=== PATIENT | female | born 1990 | race Caucasian/White ===

== ENCOUNTER → 2020-08-23 11:10 | Outpatient (BNVA) | payer MEDICAID, SELFPAY | PROVIDERS: Visit Provider Advanced Practice Midwife | DX: Z76.89 Persons encountering health services in other specified circumstances (principal) ==

== ENCOUNTER 2020-09-06 12:45 | Outpatient (REF) | payer MEDICAID, SELFPAY ==
--- NOTE | 2020-09-06 12:50 | US_ITS ---
EXAMINATION: US OBSTETRICAL CLINICAL INFORMATION: 30-year-old at 19.5 weeks of gestation Suspected anomaly COMPARISON: 07/19/2020 TECHNIQUE: Real-time transabdominal ultrasound was performed using C1-5 megahertz transducer. FINDINGS: A single, active, fetus is seen in breech presentation. The placenta is anterior without previa, and the amniotic fluid volume is wnl. MEASUREMENTS: 1. Biparietal Diameter: 4.4 cm; 19.2 wks 2. Occipital Frontal Diameter: 5.8 cm 3. Head Circumference: 16.5 cm; 19.2 wks 4. Abdominal Circumference: 15.0 cm; 20.2 wks 5. Femur Length: 3.0 cm; 19.3 wks 6. Humerus Length: 2.8 cm; 19.2 wks 7. Tibia Length: 2.9 cm; 20.3 wks 8. Ulna Length: 2.8 cm; 20.2 wks 9. Lateral ventricle: 0.58 cm 10. Cerebellum: 1.97 cm; 20.1 wks 11. Cisterna Magna: 0.46 cm 12. Nuchal Fold: 2.7 mm 13. Heart Rate: 139 beats per minute Rt ovary: Unable to visualize Lt ovary: normal Cervical length 3.8 cm on T/A. GESTATIONAL AGE: 1. Established GA: 19.5 wks 2. GA from [facility]: 19.4 wks ESTIMATED DATE OF DELIVERY: 1. Established ANDREW: 01/26/2021 2. ANDREW from [facility]: 01/27/2021 ANATOMY: The visualized anatomy includes but not limited to: 1. Cranium: Normal 2. Intracranial anatomy: cavum septum pellucidi, lateral ventricles, choroid plexus, cerebellum, posterior fossa, third and fourth ventricles. 3. face: orbits, lip/palate, profile, nasal bone 4. Heart: four-chamber view of the heart, ventricular septum, foramen ovale, pulmonary vein, left and right outflow tracts, three-vessel view, 3 vessel trachea view, aortic and ductal arches, situs.. 5. Diaphragm: Normal 6. Abdominal wall: Normal 7. Cord Insertion: Normal 8. Spine: Cervical, thoracic, lumbar, sacral. 9. Stomach: Normal size and shape 10. Right Kidney: Normal 11. Left Kidney: Normal 12. 3 vessel cord: Normal 13. Upper extremity: Open hands, fifth digit. 14. Lower extremity: Tibia, fibula, bilateral feet. 15. Bladder: Normal 16. Genitalia: Male, patient aware US/US OB /maternal detail IMPRESSION: 1. Single, living, intrauterine with appropriate biometry. 2. Normal survey DISCUSSION: I reviewed today's ultrasound findings. We discussed the limitations of ultrasound in diagnosing aneuploidy and other congenital abnormalities. I reviewed the differences between screening test and diagnostic test. Amniocentesis was discussed and declined. She was informed that the baseline incidence of congenital abnormalities is approximately 3-5%. Not all these conditions are diagnosable in utero. RECOMMENDATIONS: Thank you for allowing me to participate in her care. Visiting time 25 minutes. Majority of this visit was spent reviewing and discussing her care.
== END 2020-09-06 12:46 | disposition home or self-care (01) ==
LOC: HO.US 12:45
PROVIDERS: Visit Provider Advanced Practice Midwife
DX: Z34.80 Encounter for supervision of other normal pregnancy, unspecified trimester (principal)
CPT/HCPCS: 76811

== ENCOUNTER → 2020-09-20 12:25 | Outpatient (BNVA) | payer MEDICAID, SELFPAY | PROVIDERS: Visit Provider Advanced Practice Midwife | DX: Z76.89 Persons encountering health services in other specified circumstances (principal) ==

== ENCOUNTER 2020-09-23 09:43 | Outpatient (REF) | payer MEDICAID, SELFPAY | END 2020-09-23 09:44 | disposition home or self-care (01) | LOC: HO.LAB 09:43 | PROVIDERS: Visit Provider Advanced Practice Midwife | DX: O36.0920 Maternal care for other rhesus isoimmunization, second trimester, not applicable or unspecified (principal); Z3A.00 Weeks of gestation of pregnancy not specified | CPT/HCPCS: 86850; 86870; 86885; 86886; 86900; 86901 ==

== ENCOUNTER 2020-09-27 08:32 | Outpatient (REF) | payer MEDICAID, SELFPAY ==
--- NOTE | 2020-09-27 | US_ITS ---
M Consultation: Miss Varela was seen today at the request for consultation regarding anti-c antibody titer of 1:4. Visual well aware she's a 30-year-old 3 para 2 who is currently at 22.5 weeks of gestation based on her ANDREW of 01/26/2021. She had a normal survey on 09/06/2020. She has 2 healthy children from her first marriage. Reports no complications and that the This is her first with a new partner. She is Rh+ but small c antigen negative. Her antibody tighter on September 23 showed the 1:4 times per further anti-c. I reviewed with her that the pathophysiology and clinical consequences of isoimmunization and hemolytic disease of . We also reviewed approximate management and prognosis of first sensitized . In general, as long as the antibody titers remain low, the risk of hemolytic disease the should be minimal. I gave her reassurance that as long as her antibody titers remain below 1:32, the risk of hemolytic disease of the fetus should the low. We can also monitor peak systolic velocity in the middle cerebral artery, which has been accepted as a proxy for anemia. A repeat ultrasound has been scheduled in 2 wks along with a repeat serum titer in October. While blood type of the FOB can be helpful, it is unlikely to alter the clinical management. Thank you for allowing me to participate in her care. Majority of the the consultation was spent reviewing history and counseling her care. Total [id number] time 30 minutes.
== END 2020-09-27 08:33 | disposition home or self-care (01) ==
LOC: HO.US 08:32
PROVIDERS: PCP Internal Medicine; Visit Provider Advanced Practice Midwife
DX: Z13.89 Encounter for screening for other disorder (principal)
CPT/HCPCS: 76815

== ENCOUNTER 2020-10-11 11:56 | Outpatient (REF) | payer MEDICAID, SELFPAY ==
--- NOTE | 2020-10-11 | US_ITS ---
EXAMINATION: OBSTETRICAL ULTRASOUND, Follow up HISTORY: A 30-year-old at the 24.5 weeks of gestation Anti-c sensitization COMPARISON: 09/06/2020 TECHNIQUE: Real time transabdominal imaging with color and M-mode Doppler. PRESENTATION: Vertex PLACENTA LOCATION: Anterior without previa AMNIOTIC FLUID: Within normal limits MEASUREMENTS: 1. Biparietal Diameter: 6.0 cm; 24.5 wks 2. Head Circumference: 22.6 cm; 24.5 wks 3. Abdominal Circumference: 19.5 cm; 24.2 wks 4. Femur Length: 4.4 cm; 24.5 wks 5. Heart Rate: 158 beats per minute WEIGHT: EFW: 692 grams (1 lbs 8 oz) -- 27 %. Normal views of the posterior fossa, lateral ventricles, four-chamber view, stomach, bladder, kidneys. There is no evidence of pleural effusion, ascites or pericardial effusion. Doppler evaluation of the middle cerebral artery showed peak systolic velocity of 33.8 cm/s corresponding to 1.07MOM. This is within normal range and is not suggestive of anemia. GESTATIONAL AGE: 1. Established GA: 24.5 wks 2. GA from [facility]: 24.5 wks ESTIMATED DATE OF DELIVERY: 1. Established ANDREW: 01/26/2021 2. ANDREW from [facility]: 01/26/2021 US/US OB velocimetry mid cereb ar IMPRESSION: 1. A single active fetus is in the vertex presentation 2. Size equals dates 3. No evidence of hydrops 4. Normal peak velocity through the middle cerebral artery. I reviewed today's ultrasound findings and gave her reassurance. There is no sonographic suggestion of severe anemia. She is to have her repeat titers drawn today. She gives a history of one sensitized where the baby was born mildly anemic but did not require transfusion. Follow-up in 2 weeks has been scheduled. Thank you very much for this referral. Visiting time 40 minutes. Majority of this visit was spent reviewing and coordinating her care.
--- NOTE | 2020-10-11 | US_ITS ---
EXAMINATION: OBSTETRICAL ULTRASOUND, Follow up HISTORY: A 30-year-old at the 24.5 weeks of gestation Anti-c sensitization COMPARISON: 09/06/2020 TECHNIQUE: Real time transabdominal imaging with color and M-mode Doppler. PRESENTATION: Vertex PLACENTA LOCATION: Anterior without previa AMNIOTIC FLUID: Within normal limits MEASUREMENTS: 1. Biparietal Diameter: 6.0 cm; 24.5 wks 2. Head Circumference: 22.6 cm; 24.5 wks 3. Abdominal Circumference: 19.5 cm; 24.2 wks 4. Femur Length: 4.4 cm; 24.5 wks 5. Heart Rate: 158 beats per minute WEIGHT: EFW: 692 grams (1 lbs 8 oz) -- 27 %. Normal views of the posterior fossa, lateral ventricles, four-chamber view, stomach, bladder, kidneys. There is no evidence of pleural effusion, ascites or pericardial effusion. Doppler evaluation of the middle cerebral artery showed peak systolic velocity of 33.8 cm/s corresponding to 1.07MOM. This is within normal range and is not suggestive of anemia. GESTATIONAL AGE: 1. Established GA: 24.5 wks 2. GA from [facility]: 24.5 wks ESTIMATED DATE OF DELIVERY: 1. Established ANDREW: 01/26/2021 2. ANDREW from [facility]: 01/26/2021 US/US OB follow up IMPRESSION: 1. A single active fetus is in the vertex presentation 2. Size equals dates 3. No evidence of hydrops 4. Normal peak velocity through the middle cerebral artery. I reviewed today's ultrasound findings and gave her reassurance. There is no sonographic suggestion of severe anemia. She is to have her repeat titers drawn today. She gives a history of one sensitized where the baby was born mildly anemic but did not require transfusion. Follow-up in 2 weeks has been scheduled. Thank you very much for this referral. Visiting time 40 minutes. Majority of this visit was spent reviewing and coordinating her care.
== END 2020-10-11 11:57 | disposition home or self-care (01) ==
LOC: HO.US 11:56
PROVIDERS: Visit Provider Advanced Practice Midwife
DX: O36.1920 Maternal care for other isoimmunization, second trimester, not applicable or unspecified (principal); Z3A.24 24 weeks gestation of pregnancy
CPT/HCPCS: 76816; 76821

== ENCOUNTER 2020-10-18 11:40 | Outpatient (REF) | payer MEDICAID, SELFPAY ==
[2020-10-19 11:05] LABS: BV Int Neg Control Negative (Negative); BV Int Pos Control Positive (Positive)
== END 2020-10-18 11:41 | disposition home or self-care (01) ==
LOC: HO.LAB 11:40
PROVIDERS: PCP Internal Medicine; Visit Provider Advanced Practice Midwife
DX: N89.8 Other specified noninflammatory disorders of vagina (principal); Z34.80 Encounter for supervision of other normal pregnancy, unspecified trimester
CPT/HCPCS: 81003; 87480; 87510; 87660

== ENCOUNTER 2020-10-25 14:28 | Outpatient (REF) | payer MEDICAID, SELFPAY ==
--- NOTE | 2020-10-25 14:42 | US_ITS ---
EXAMINATION: OBSTETRICAL ULTRASOUND, Follow up HISTORY: 30-year-old at the 26.5 weeks of gestation Anti- c sensitization Size date discrepancy COMPARISON: 10/11/2020 TECHNIQUE: Real time transabdominal imaging with color and M-mode Doppler. Pulse wave Doppler evaluation of the middle cerebral artery was performed. PRESENTATION: Transverse PLACENTA LOCATION: Anterior without previa AMNIOTIC FLUID: Within normal limits MEASUREMENTS: 1. Biparietal Diameter: 6.7 cm; 26.6 wks 2. Head Circumference: 24.6 cm; 26.6 wks 3. Abdominal Circumference: 23.2 cm; 27.4 wks 4. Femur Length: 4.85 cm; 26.2 wks 5. Heart Rate: 142 beats per minute WEIGHT: EFW: 1023 grams (2 lbs 4 oz) -- 53 %. No evidence of hydrops. Doppler MCA: Peak systolic velocity 31.3 cm/s (0.9 MOM) GESTATIONAL AGE: 1. Established GA: 26.5 wks 2. GA from [facility]: 27.0 wks ESTIMATED DATE OF DELIVERY: 1. Established ANDREW: 01/26/2021 2. ANDREW from [facility]: 01/24/2021 US/US OB follow up IMPRESSION: 1. A single active fetus is in transverse lie 2. Size equals dates 3. No evidence of hydrops 4. Normal peak systolic velocity through the cerebral artery I reviewed today's ultrasound findings and gave her reassurance. There is no evidence of hydrops. In addition the MCA Doppler showed the peak systolic velocity that is within normal range. Based on today's examination, there is no sonographic suggestion of severe anemia. She is due for repeat anti-c titer today. She thinks her last titer was 1:8. She is scheduled for repeat the evaluation in 3 weeks. Thank you very much for this referral. Visiting time 25 minutes. Majority of this visit was spent reviewing and coordinating her care.
--- NOTE | 2020-10-25 15:15 | US_ITS ---
EXAMINATION: OBSTETRICAL ULTRASOUND, Follow up HISTORY: 30-year-old at the 26.5 weeks of gestation Anti- c sensitization Size date discrepancy COMPARISON: 10/11/2020 TECHNIQUE: Real time transabdominal imaging with color and M-mode Doppler. Pulse wave Doppler evaluation of the middle cerebral artery was performed. PRESENTATION: Transverse PLACENTA LOCATION: Anterior without previa AMNIOTIC FLUID: Within normal limits MEASUREMENTS: 1. Biparietal Diameter: 6.7 cm; 26.6 wks 2. Head Circumference: 24.6 cm; 26.6 wks 3. Abdominal Circumference: 23.2 cm; 27.4 wks 4. Femur Length: 4.85 cm; 26.2 wks 5. Heart Rate: 142 beats per minute WEIGHT: EFW: 1023 grams (2 lbs 4 oz) -- 53 %. No evidence of hydrops. Doppler MCA: Peak systolic velocity 31.3 cm/s (0.9 MOM) GESTATIONAL AGE: 1. Established GA: 26.5 wks 2. GA from [facility]: 27.0 wks ESTIMATED DATE OF DELIVERY: 1. Established ANDREW: 01/26/2021 2. ANDREW from [facility]: 01/24/2021 US/US OB velocimetry mid cereb ar IMPRESSION: 1. A single active fetus is in transverse lie 2. Size equals dates 3. No evidence of hydrops 4. Normal peak systolic velocity through the cerebral artery I reviewed today's ultrasound findings and gave her reassurance. There is no evidence of hydrops. In addition the MCA Doppler showed the peak systolic velocity that is within normal range. Based on today's examination, there is no sonographic suggestion of severe anemia. She is due for repeat anti-c titer today. She thinks her last titer was 1:8. She is scheduled for repeat the evaluation in 3 weeks. Thank you very much for this referral. Visiting time 25 minutes. Majority of this visit was spent reviewing and coordinating her care.
== END 2020-10-25 14:29 | disposition home or self-care (01) ==
LOC: HO.US 14:28
PROVIDERS: Visit Provider Advanced Practice Midwife
DX: Z34.80 Encounter for supervision of other normal pregnancy, unspecified trimester (principal)
CPT/HCPCS: 76816; 76821

== ENCOUNTER → 2020-11-04 14:02 | Outpatient (BNVA) | payer MEDICAID, SELFPAY | PROVIDERS: PCP Internal Medicine; Visit Provider Advanced Practice Midwife | DX: Z13.89 Encounter for screening for other disorder (principal) | CPT/HCPCS: 99212 ==

== ENCOUNTER 2020-11-15 11:24 | Outpatient (REF) | payer MEDICAID, SELFPAY ==
--- NOTE | 2020-11-15 11:29 | US_ITS ---
EXAMINATION: OBSTETRICAL ULTRASOUND, Follow up HISTORY: 21-year-old at 29.5 weeks of gestation Anti-c sensitization Size date discrepancy COMPARISON: 10/25/2020 TECHNIQUE: Real time transabdominal imaging with color and M-mode Doppler. PRESENTATION: Vertex PLACENTA LOCATION: Anterior AMNIOTIC FLUID: LAURYN 18.2 cm MEASUREMENTS: 1. Biparietal Diameter: 7.4 cm; 29.5 wks 2. Head Circumference: 27.2 cm; 29.5 wks 3. Abdominal Circumference: 25.9 cm; 30.1 wks 4. Femur Length: 5.4 cm; 28.5 wks 5. Heart Rate: 152 beats per minute WEIGHT: EFW: 1407 grams (3 lbs 2 oz) -- 30 %. BIOPHYSICAL PROFILE: Motion: 2 Tone: 2 Breathin Amniotic Fluid: 2 Total score: 8/8 GESTATIONAL AGE: 1. Established GA: 29.5 wks 2. GA from [facility]: 29.4 wks ESTIMATED DATE OF DELIVERY: 1. Established ANDREW: 01/26/2021 2. ANDREW from [facility]: 01/27/2021 MCA Doppler showed peak systolic velocity of 46.3 cm/s which corresponds to 1.16 MOM. There is no evidence of hydrops. US/US OB follow up IMPRESSION: 1. A single active fetus is in vertex presentation 2. Size equals dates 3. Reassuring biophysical profile 4. MCA Doppler showed the peak systolic velocity dates within normal range. This is not suggestive of anemia 5. No evidence of hydrops I reviewed today's ultrasound findings and gave her reassurance. The peak velocity flow through the middle cerebral artery is not consistent with anemia. She has not had her repeat titer. Its been nearly a month. She is scheduled to have her blood sample taken this Wednesday. She understands the clinical consequences of the hemolytic disease. So far there is no suspicion for severe anemia. Thank you very much for this referral. Visiting time 30 minutes. Pre-visit 5 min, In discussion 15 min, Post-visit: 10 min. Others (30 min).
--- NOTE | 2020-11-15 12:22 | US_ITS ---
EXAMINATION: OBSTETRICAL ULTRASOUND, Follow up HISTORY: 21-year-old at 29.5 weeks of gestation Anti-c sensitization Size date discrepancy COMPARISON: 10/25/2020 TECHNIQUE: Real time transabdominal imaging with color and M-mode Doppler. PRESENTATION: Vertex PLACENTA LOCATION: Anterior AMNIOTIC FLUID: LAURYN 18.2 cm MEASUREMENTS: 1. Biparietal Diameter: 7.4 cm; 29.5 wks 2. Head Circumference: 27.2 cm; 29.5 wks 3. Abdominal Circumference: 25.9 cm; 30.1 wks 4. Femur Length: 5.4 cm; 28.5 wks 5. Heart Rate: 152 beats per minute WEIGHT: EFW: 1407 grams (3 lbs 2 oz) -- 30 %. BIOPHYSICAL PROFILE: Motion: 2 Tone: 2 Breathin Amniotic Fluid: 2 Total score: 8/8 GESTATIONAL AGE: 1. Established GA: 29.5 wks 2. GA from [facility]: 29.4 wks ESTIMATED DATE OF DELIVERY: 1. Established ANDREW: 01/26/2021 2. ANDREW from [facility]: 01/27/2021 MCA Doppler showed peak systolic velocity of 46.3 cm/s which corresponds to 1.16 MOM. There is no evidence of hydrops. US/US OB velocimetry mid cereb ar IMPRESSION: 1. A single active fetus is in vertex presentation 2. Size equals dates 3. Reassuring biophysical profile 4. MCA Doppler showed the peak systolic velocity dates within normal range. This is not suggestive of anemia 5. No evidence of hydrops I reviewed today's ultrasound findings and gave her reassurance. The peak velocity flow through the middle cerebral artery is not consistent with anemia. She has not had her repeat titer. Its been nearly a month. She is scheduled to have her blood sample taken this Wednesday. She understands the clinical consequences of the hemolytic disease. So far there is no suspicion for severe anemia. Thank you very much for this referral. Visiting time 30 minutes. Pre-visit 5 min, In discussion 15 min, Post-visit: 10 min. Others (30 min).
== END 2020-11-15 11:25 | disposition home or self-care (01) ==
LOC: HO.US 11:24
PROVIDERS: Visit Provider Advanced Practice Midwife
DX: O26.843 Uterine size-date discrepancy, third trimester (principal); O36.0130 Maternal care for anti-D [Rh] antibodies, third trimester, not applicable or unspecified; Z3A.29 29 weeks gestation of pregnancy
CPT/HCPCS: 76816; 76821

== ENCOUNTER → 2020-11-29 15:32 | Outpatient (BNVA) | payer MEDICAID, SELFPAY | PROVIDERS: Visit Provider Advanced Practice Midwife ==

== ENCOUNTER 2020-12-06 08:26 | Outpatient (REF) | payer MEDICAID, SELFPAY ==
--- NOTE | 2020-12-06 | US_ITS ---
EXAMINATION: OBSTETRICAL ULTRASOUND, Follow up HISTORY: A 30-year-old at the 32.5 weeks of gestation Anti-c sensitization Size date discrepancy COMPARISON: 11/15/2020 TECHNIQUE: Real time transabdominal imaging with color and M-mode Doppler. PRESENTATION: Vertex PLACENTA LOCATION: Anterior without previa AMNIOTIC FLUID: LAURYN 19.4 cm MEASUREMENTS: 1. Biparietal Diameter: 8.0 cm; 32.2 wks 2. Head Circumference: 28.7 cm; 31.4 wks 3. Abdominal Circumference: 27.96 cm; 32.1 wks 4. Femur Length: 6.3 cm; 23.6 wks 5. Heart Rate: 134 beats per minute WEIGHT: EFW: 1957 grams (4 lbs 5 oz) -- 30 %. BIOPHYSICAL PROFILE: Motion: 2 Tone: 2 Breathin Amniotic Fluid: 2 Total score: 6/8 MCA Doppler: Peak systolic velocity 67.0 cm/s, 1.4 MOM No evidence of the hydrops GESTATIONAL AGE: 1. Established GA: 32.5 wks 2. [facility]: 32.2 wks ESTIMATED DATE OF DELIVERY: 1. Established ANDREW: 01/26/2021 2. ANDREW from [facility]: 01/29/2021 US/US OB velocimetry mid cereb ar IMPRESSION: 1. A single active fetus is in the vertex dictation 2. Size equals dates 3. BPP score was 6/8 (-2 for breathing) 4. No evidence of hydrops 5. MCA Doppler showed normal systolic velocity. MoM of 1.4 is not suggestive of anemia. I reviewed today's ultrasound findings. The MCA Doppler is not suggestive of anemia. In addition is no evidence of hydrops. The growth is appropriate. The breathing motion was absent. However if the NST is reactive, the overall biophysical profile score would be acceptable. She can follow-up next week. (Scheduled). She was instructed to go to the office for nonstress test. Because of the issue with transportation, she has not been getting her anti-E antibody titers checked. I recommended her to have at least one more titer drawn. If the fetus continues to be stable, she can be managed expectantly with close monitoring until 37 weeks of gestation. Thank you very much for this referral. Visiting time 30 minutes. Majority of this visit was spent reviewing and coordinating her care.
--- NOTE | 2020-12-06 | US_ITS ---
EXAMINATION: OBSTETRICAL ULTRASOUND, Follow up HISTORY: A 30-year-old at the 32.5 weeks of gestation Anti-c sensitization Size date discrepancy COMPARISON: 11/15/2020 TECHNIQUE: Real time transabdominal imaging with color and M-mode Doppler. PRESENTATION: Vertex PLACENTA LOCATION: Anterior without previa AMNIOTIC FLUID: LAURYN 19.4 cm MEASUREMENTS: 1. Biparietal Diameter: 8.0 cm; 32.2 wks 2. Head Circumference: 28.7 cm; 31.4 wks 3. Abdominal Circumference: 27.96 cm; 32.1 wks 4. Femur Length: 6.3 cm; 23.6 wks 5. Heart Rate: 134 beats per minute WEIGHT: EFW: 1957 grams (4 lbs 5 oz) -- 30 %. BIOPHYSICAL PROFILE: Motion: 2 Tone: 2 Breathin Amniotic Fluid: 2 Total score: 6/8 MCA Doppler: Peak systolic velocity 67.0 cm/s, 1.4 MOM No evidence of the hydrops GESTATIONAL AGE: 1. Established GA: 32.5 wks 2. GA from [facility]: 32.2 wks ESTIMATED DATE OF DELIVERY: 1. Established ANDREW: 01/26/2021 2. ANDREW from [facility]: 01/29/2021 US/US OB follow up IMPRESSION: 1. A single active fetus is in the vertex dictation 2. Size equals dates 3. BPP score was 6/8 (-2 for breathing) 4. No evidence of hydrops 5. MCA Doppler showed normal systolic velocity. MoM of 1.4 is not suggestive of anemia. I reviewed today's ultrasound findings. The MCA Doppler is not suggestive of anemia. In addition is no evidence of hydrops. The growth is appropriate. The breathing motion was absent. However if the NST is reactive, the overall biophysical profile score would be acceptable. She can follow-up next week. (Scheduled). She was instructed to go to the office for nonstress test. Because of the issue with transportation, she has not been getting her anti-E antibody titers checked. I recommended her to have at least one more titer drawn. If the fetus continues to be stable, she can be managed expectantly with close monitoring until 37 weeks of gestation. Thank you very much for this referral. Visiting time 30 minutes. Majority of this visit was spent reviewing and coordinating her care.
== END 2020-12-06 08:27 | disposition home or self-care (01) ==
LOC: HO.US 08:26
PROVIDERS: Visit Provider Advanced Practice Midwife
DX: O09.899 Supervision of other high risk pregnancies, unspecified trimester (principal)
CPT/HCPCS: 76816; 76821

== ENCOUNTER 2020-12-07 09:47 | Outpatient (REF) | payer MEDICAID, SELFPAY ==
--- NOTE | 2020-12-07 09:52 | US_ITS ---
EXAMINATION: US OBSTETRICAL (BIOPHYSICAL PROFILE), limited CLINICAL INFORMATION: No breathing seen on yesterday's exam. COMPARISON: Ultrasound OB 12/06/2020 TECHNIQUE: Ultrasound of the pelvis is performed. Biophysical profile is performed over 30 minutes with assessment of breathing, gross body movement, tone, and qualitative amniotic fluid volume. Each matrix is scored 0 or 2, depending if the metric is present. Maximum total score possible is 8. Examination is not intended to assess for anomalies. FINDINGS: POSITION: Cephalic PLACENTA: Anterior, grade 2 AMNIOTIC FLUID INDEX: 14.6 cm CARDIAC ACTIVITY: 139 beats per minute BIOPHYSICAL PROFILE: Motion: 2 Tone: 2 Breathin Amniotic Fluid: 2 Total score: 8 US/US OB biophysical profile IMPRESSION: 1. Single intrauterine gestation in cephalic position with anterior placenta. 2. Total biophysical score is 8 (scale 0-8). 3. Amniotic fluid index 14.6 cm. 4. cardiac activity 139 beats per minute.
== END 2020-12-07 09:48 | disposition home or self-care (01) ==
LOC: HO.US 09:47
PROVIDERS: Visit Provider Obstetrics & Gynecology
DX: O09.899 Supervision of other high risk pregnancies, unspecified trimester (principal); Z3A.00 Weeks of gestation of pregnancy not specified
CPT/HCPCS: 76819

== ENCOUNTER 2020-12-17 20:53 | Emergency (ER) | payer MEDICAID, SELFPAY ==
--- NOTE | ~2020-12-17 | XR_ITS ---
EXAMINATION: XR CHEST CLINICAL INFORMATION: Dyspnea COMPARISON: None TECHNIQUE: Frontal view of the chest was obtained. FINDINGS: Low lung volumes and bibasilar streaky airspace opacities. No pleural effusion or pneumothorax. Heart size and pulmonary vascularity within normal limits. No acute or suspicious osseous abnormalities. XR/XR chest 1V IMPRESSION: Low lung volumes accompanied by bilateral lower lung streaky opacities. Subsegmental atelectasis and/or infiltrates could have this appearance.
--- NOTE | 2020-12-17 21:06 | ED_ITS ---
HPI - SOB/Dyspnea General Chief Complaint: Dyspnea Stated Complaint: DIFF BREATHING - 37 WEEKS Time Seen by Provider: 12/17/20 21:06 Source: patient Mode of arrival: ambulatory Limitations: no limitations History of Present Illness HPI Narrative: 34 weeks followed at [facility] [place] 3 days of dyspnea, difficult to walk, cannot lie flat, has bilateral rib pain and it is hard to take a deep breath - no prior lung issues, no one at home has COVID but her boyfriend did have a cold sometime last week reportedly had a negative COVID test at that time, she does not smoke. OF NOTE THE PATIENT STATED ON ARRIVAL SHE WAS 37 WEEKS - AFTER REVIEW OF NOTES SHE IS ACTUALLY 34 WEEKS, HX OF HSV LMP UNCERTAIN BLOOD TYPE : A pos (antibody pos) Pos little c Antibody screen, titer =2 - rpt screening q 2-4 wks starting at 16- 18 wks. U/S and peak flow middle cerebral artery studies q 2-[address] Austin. -last drawn 09/23. declined flu shot patient has had some pelvic pressure but no contractions, no leakage of fluid, no vaginal bleeding, pressure is not intermittent and does not come and go MD elicited complaint: shortness of breath Pertinent past history: other (37 weeks ) Onset (ago): day(s) (3) Timing: constant and progressively worsening Severity: severe Exacerbating factors: lying flat and exertion Relieving factors: oxygen and rest Associated symptoms: chest pain and orthopnea Treatment prior to arrival: none Related Data Home Medications Medication Instructions Recorded Confirmed prenat.vits,bryant,[id number] 1 tab PO DAILY 08/23/20 Previous Rx's Medication Instructions Recorded miconazole nitrate 2 % vaginal 1 appful VAGINAL BEDTIME 7 Days 10/22/20 cream #45 g fluconazole 150 mg tablet 150 mg PO Q3D 0 Days #2 tab 11/29/20 Allergies Allergy/AdvReac Type Severity Reaction Status Date / Time No Known Allergies Allergy Verified 12/17/20 21:17 Review of Systems Review of Systems: Constitutional : No Fever, No Chills ENT/Mouth : No sore throat, pos Rhinorrhea, No Swallowing Difficulty Eyes: No Eye Pain, No Swelling, No Redness Cardiovascular : No Chest Pain, positive SOB, pos Orthopnea, no Edema Respiratory : pos Cough, No Sputum, No Wheezing, positive dyspnea Gastrointestinal : No Nausea, No Vomiting, No Diarrhea, No abdominal Pain, No Hematochezia, No Melena Genitourinary : No Dysuria, No Urinary Frequency, No Hematuria Musculoskeletal : No joint pain, No Myalgias Skin : No Skin Lesions, No rash Neuro : No Weakness, No Numbness, No Dizziness, No Headache Psych : No Anxiety/Panic, No Depression Heme/Lymph: No Bruising, No Lymphadenopathy Endocrine : No Polyuria, No Polydipsia All other systems reviewed and are negative [facility] Past Medical History Attestation statement: The following information was validated with the patient. Medical History Rh little c (RH004) positive Family History Family History Father HTN (hypertension) Diabetes Social History Social History Alcohol intake: never Smoking Status: Never smoker Use of substances other than those prescribed or required for medical reasons: No Advance Directives: No Advance Directives Information Provided: No Sexual orientation: Straight/Heterosexual Gender identity: female Physical Exam Vital Signs: Vital Signs: Last Vital Signs Temp 99.0 F 12/17/20 22:45 Pulse 134 H 12/17/20 22:45 Resp 22 H 12/17/20 22:45 BP 103/61 12/17/20 22:45 Pulse Ox 97 12/17/20 22:45 Body Mass Index 74.9 Appearance: Alert. Oriented X3. Mild acute distress. Anxious 92% on RA Eyes: Pupils equal, round and reactive to light. ENT: Pharynx normal. Neck: Normal inspection. Neck supple. CVS: Normal heart rate and rhythm. Pulses normal. Respiratory: Mild respiratory distress - retractions, tachypnea, obviously winded with any movements. Breath sounds decreased with rhonchi throughout Abdomen: Soft and nontender. Gravid uterus at xyphoid Skin: Skin warm and dry. Normal skin color. Normal skin turgor. Extremities: No pitting lower extremity edema. No calf ttp Neuro: Oriented X 3. No motor deficit. No sensory deficit. Course Course Course Narrative: FHT 152 99% on 4L NC HR 130, 97% on 4L NC, RR 24, 103/61 given O2 needs will dose with IV dexamethasone patient's OB Dr. Virgie Dunlap aware would recommend transfer to [facility] I have printed out last visit notes and US for records call to [facility] 1045pm for transfer, pending call back OB Trinidad (resident) from [facility] - waldo to be admitted to medicine will follow along 1101pm spoke to hospitalist covering service admitting Dr. Rodriguez - 1139pm will call when bed available MDM - SOB/Dyspnea MDM Narrative Medical decision making narrative: 30 yo female - 34 weeks with mild resp distress sick x 3 days, low grade temps here - 91/92% on RA placed on 3L now > 98% - will need labs, COVID swab, CXR, PO tylenol, bronchodilator - she has mild pelvic pressure but notes this is not unusual for her - no leakage of fluids no vaginal bleeding, FHT to be checked, patient aware given her presentation she will be transferred to [facility] for further care and monitoring, concerned for COVID vs cardiomyopathy though her BP is low and her legs do no have pitting edema. Lab Data Result diagrams: 12/17/20 21:34 12/17/20 21:34 Labs: Lab Results 12/17/20 12/17/20 12/17/20 Range/Units 21:24 21:34 21:34 WBC 11.5 H (4.8-10.8) X10*3/uL RBC 4.00 L (4.20-5.50) X10*6/uL Hgb 11.1 L (12.0-16.0) g/dl Hct 34.0 L (37-47) % MCV 85.0 (80-98) fL MCH 27.8 (27.0-33.0) pg MCHC 32.6 (31.0-35.0) g/dl RDW 14.4 (11.0-16.0) % Plt Count 281 (160-400) X10*3/uL MPV 9.8 (9.4-12.3) fL Immature Gran % (Auto) 4.7 H (0.0-0.4) % Neut % (Auto) 81.9 H (45-73) % Lymph % (Auto) 8.3 L (20-40) % [place] % (Auto) 4.8 (2-11) % Eos % (Auto) 0.1 (0-4) % Baso % (Auto) 0.2 (0-2) % Lymph # (Auto) 1.0 L (1.2-4.9) X10*3/uL [place] # (Auto) 0.6 (0.1-1.2) X10*3/uL Eos # (Auto) 0.0 (0.0-0.4) X10*3/uL Baso # (Auto) 0.0 (0.0-0.2) X10*3/uL Abs Immat Gran (auto) 0.54 H (0.00-0.03) X10*3/uL Absolute Neuts (auto) 9.4 H (2.0-8.3) X10*3/uL Absolute Nucleated RBC 0.030 H (0.0-0.012) X10*3/uL Nucleated RBC % (auto) 0.3 H (0.0-0.2) /100WBC PT (10.8-13.0) SEC INR (0.9-1.1) APTT (24.1-38.0) SEC D-Dimer NG/ML Sodium 134 L (135-145) mmol/L Potassium 3.7 (3.3-5.1) mmol/L Chloride 102 (96-108) mmol/L Carbon Dioxide 22 (22-29) mmol/L Anion Gap 14 (12-20) BUN 6 L (9-16) mg/dL Creatinine 0.70 (0.5-1.4) mg/dL Estim Creat Clear Calc 183.3 Estimated GFR > 60 Random Glucose 96 (60-115) mg/dL Lactic Acid (0.5-2.0) mmol/L Calcium 8.2 L (8.4-10.2) mg/dL Magnesium 1.9 (1.6-2.6) mg/dL Ferritin (10-122) ng/mL Total Bilirubin 0.8 (0.0-1.0) mg/dL Direct Bilirubin 0.5 (0.0-0.5) mg/dL AST 23 (5-31) U/L ALT 11 (0-31) U/L Alkaline Phosphatase 268 H (39-117) U/L Lactate Dehydrogenase 225 H (122-220) U/L Troponin I High Sens (<3.5-17.0) ng/L B-Natriuretic Peptide (<100) pg/mL Total Protein 6.7 (6.5-8.0) g/dL Albumin 3.2 L (3.5-5.0) g/dL Lipase (8-78) U/L Procalcitonin ng/mL Coronavirus (PCR) POSITIVE A (Negative) Influenza Type A (PCR) NEGATIVE (Negative) Influenza Type B (PCR) NEGATIVE (Negative) RSV RNA Qual (PCR) NEGATIVE (Negative) 12/17/20 12/17/20 12/17/20 Range/Units 21:34 21:34 21:34 WBC (4.8-10.8) X10*3/uL RBC (4.20-5.50) X10*6/uL Hgb (12.0-16.0) g/dl Hct (37-47) % MCV (80-98) fL MCH (27.0-33.0) pg MCHC (31.0-35.0) g/dl RDW (11.0-16.0) % Plt Count (160-400) X10*3/uL MPV (9.4-12.3) fL Immature Gran % (Auto) (0.0-0.4) % Neut % (Auto) (45-73) % Lymph % (Auto) (20-40) % [place] % (Auto) (2-11) % Eos % (Auto) (0-4) % Baso % (Auto) (0-2) % Lymph # (Auto) (1.2-4.9) X10*3/uL [place] # (Auto) (0.1-1.2) X10*3/uL Eos # (Auto) (0.0-0.4) X10*3/uL Baso # (Auto) (0.0-0.2) X10*3/uL Abs Immat Gran (auto) (0.00-0.03) X10*3/uL Absolute Neuts (auto) (2.0-8.3) X10*3/uL Absolute Nucleated RBC (0.0-0.012) X10*3/uL Nucleated RBC % (auto) (0.0-0.2) /100WBC PT 12.1 (10.8-13.0) SEC INR 1.0 (0.9-1.1) APTT 30.3 (24.1-38.0) SEC D-Dimer 448 NG/ML Sodium (135-145) mmol/L Potassium (3.3-5.1) mmol/L Chloride (96-108) mmol/L Carbon Dioxide (22-29) mmol/L Anion Gap (12-20) BUN (9-16) mg/dL Creatinine (0.5-1.4) mg/dL Estim Creat Clear Calc Estimated GFR Random Glucose (60-115) mg/dL Lactic Acid 1.0 (0.5-2.0) mmol/L Calcium (8.4-10.2) mg/dL Magnesium (1.6-2.6) mg/dL Ferritin (10-122) ng/mL Total Bilirubin (0.0-1.0) mg/dL Direct Bilirubin (0.0-0.5) mg/dL AST (5-31) U/L ALT (0-31) U/L Alkaline Phosphatase (39-117) U/L Lactate Dehydrogenase (122-220) U/L Troponin I High Sens (<3.5-17.0) ng/L B-Natriuretic Peptide 17 (<100) pg/mL Total Protein (6.5-8.0) g/dL Albumin (3.5-5.0) g/dL Lipase (8-78) U/L Procalcitonin ng/mL Coronavirus (PCR) (Negative) Influenza Type A (PCR) (Negative) Influenza Type B (PCR) (Negative) RSV RNA Qual (PCR) (Negative) 12/17/20 12/17/20 12/17/20 Range/Units 21:34 21:34 21:34 WBC (4.8-10.8) X10*3/uL RBC (4.20-5.50) X10*6/uL Hgb (12.0-16.0) g/dl Hct (37-47) % MCV (80-98) fL MCH (27.0-33.0) pg MCHC (31.0-35.0) g/dl RDW (11.0-16.0) % Plt Count (160-400) X10*3/uL MPV (9.4-12.3) fL Immature Gran % (Auto) (0.0-0.4) % Neut % (Auto) (45-73) % Lymph % (Auto) (20-40) % [place] % (Auto) (2-11) % Eos % (Auto) (0-4) % Baso % (Auto) (0-2) % Lymph # (Auto) (1.2-4.9) X10*3/uL [place] # (Auto) (0.1-1.2) X10*3/uL Eos # (Auto) (0.0-0.4) X10*3/uL Baso # (Auto) (0.0-0.2) X10*3/uL Abs Immat Gran (auto) (0.00-0.03) X10*3/uL Absolute Neuts (auto) (2.0-8.3) X10*3/uL Absolute Nucleated RBC (0.0-0.012) X10*3/uL Nucleated RBC % (auto) (0.0-0.2) /100WBC PT (10.8-13.0) SEC INR (0.9-1.1) APTT (24.1-38.0) SEC D-Dimer NG/ML Sodium (135-145) mmol/L Potassium (3.3-5.1) mmol/L Chloride (96-108) mmol/L Carbon Dioxide (22-29) mmol/L Anion Gap (12-20) BUN (9-16) mg/dL Creatinine (0.5-1.4) mg/dL Estim Creat Clear Calc Estimated GFR Random Glucose (60-115) mg/dL Lactic Acid (0.5-2.0) mmol/L Calcium (8.4-10.2) mg/dL Magnesium (1.6-2.6) mg/dL Ferritin 28 (10-122) ng/mL Total Bilirubin (0.0-1.0) mg/dL Direct Bilirubin (0.0-0.5) mg/dL AST (5-31) U/L ALT (0-31) U/L Alkaline Phosphatase (39-117) U/L Lactate Dehydrogenase (122-220) U/L Troponin I High Sens < 3.5 (<3.5-17.0) ng/L B-Natriuretic Peptide (<100) pg/mL Total Protein (6.5-8.0) g/dL Albumin (3.5-5.0) g/dL Lipase 35 (8-78) U/L Procalcitonin 0.08 ng/mL Coronavirus (PCR) (Negative) Influenza Type A (PCR) (Negative) Influenza Type B (PCR) (Negative) RSV RNA Qual (PCR) (Negative) ECG Data Attestation: I personally reviewed and interpreted this ECG as follows: ECG interpretation date: 12/17/20 ECG interpretation time: 22:11 Interpretation: Rate: 107 Rhythm: sinus tachycardia [place]: normal Normal P waves. Normal NAVID. Normal QRS complex. ST T wave : normal no JOAQUÍN qTC: normal prior studies: no acute ischemia The study has been interpreted contemporaneously by me. . Critical Care Time Critical Care Time Critical Care Time: Yes Total Critical Care Time: 60 Attestation: repeat exams, medical consults, transfer to tertiary center I attest to this time spent taking care of the patient Discharge Plan Discharge Clinical Impression: Pneumonia due to COVID-19 virus, Hypoxia Patient Disposition: Xfer [facility] Transfer Details: [facility] Prescriptions: No Action miconazole nitrate [Monistat 7] 2 % cream 1 appful vaginal BEDTIME 7 Days Qty: 45 RF: 0 prenat.vits,bryant,[id number] Tablet 1 tab PO DAILY RF: 0 fluconazole [Diflucan] 150 mg tablet 150 mg PO Q3D 0 Days Qty: 2 RF: 0
--- NOTE | 2020-12-17 21:15 | ECG_ITS ---
Test Reason : SHORTNESS OF BREATH Blood Pressure : / mmHG Vent. Rate : 107 BPM Atrial Rate : 107 BPM P-R Int : 112 ms QRS Dur : 078 ms QT Int : 332 ms P-R-T Axes : 048 036 029 degrees QTc Int : 443 ms Sinus tachycardia Otherwise normal ECG No previous ECGs available Referred By: Galina Duenas Electronically Signed By:SHAMA OQUENDO
[2020-12-17 21:18] VITALS: BP 102/65; PULSE 110; RESP 24; TEMP 37.8; O2SAT 92; BMI 74.9
[2020-12-17 21:39] VITALS: BP 103/61; PULSE 110; RESP 22; TEMP 37.7; O2SAT 99
[2020-12-17] MEDS: Acetaminophen 325 MG TABLET 650 MG PO (21:44)
[2020-12-17 21:48] VITALS: PULSE 105; O2SAT 99
[2020-12-17 21:53] LABS: MANUAL DIFF FLAG NO
[2020-12-17 21:56] LABS: Basophils Percent Auto 0.2 % (0-2); Eosinophils Percent Auto 0.1 % (0-4); Hemoglobin 11.1 g/dl (12.0-16.0); Imm Gran Abs Auto 0.54 X10*3/uL (0.00-0.03); Imm Gran Pct Auto 4.7 % (0.0-0.4); Lymphocytes Percent Auto 8.3 % (20-40); Mean Corpuscular HGB Conc 32.6 g/dl (31.0-35.0); Mean Corpuscular Hemoglobin 27.8 pg (27.0-33.0); Mean Platelet Volume 9.8 fL (9.4-12.3); Monocytes Absolute Auto 0.6 X10*3/uL (0.1-1.2); Monocytes Percent Auto 4.8 % (2-11); NRBC Pct Auto 0.3 /100WBC (0.0-0.2); Neutrophils Absolute Auto 9.4 X10*3/uL (2.0-8.3); Neutrophils Percent Auto 81.9 % (45-73); Platelet Count 281 X10*3/uL (160-400); Red Cell Distribution Width 14.4 % (11.0-16.0); White Blood Count 11.5 X10*3/uL (4.8-10.8)
[2020-12-17 22:01] LABS: Prothrombin Time 12.1 SEC (10.8-13.0)
[2020-12-17 22:04] LABS: D Dimer 448 NG/ML; Partial Thromboplastin Time 30.3 SEC (24.1-38.0)
[2020-12-17 22:10] LABS: Influenza A PCR NEGATIVE (Negative); Influenza B PCR NEGATIVE (Negative); Resp Syncy Virus RNA Qual PCR NEGATIVE (Negative); SARS COV2 PCR INHOUSE POSITIVE (Negative)
[2020-12-17 22:23] LABS: B Type Natriuretic Peptide 17 pg/mL (<100); Troponin-I High Sensitivity < 3.5 ng/L (<3.5-17.0)
[2020-12-17 22:24] LABS: Alanine Aminotransferase 11 U/L (0-31); Albumin Level 3.2 g/dL (3.5-5.0); Alkaline Phosphatase 268 U/L (39-117); Anion Gap 14 (12-20); Aspartate Amino Transferase 23 U/L (5-31); Bilirubin Direct 0.5 mg/dL (0.0-0.5); Bilirubin Total 0.8 mg/dL (0.0-1.0); Blood Urea Nitrogen 6 mg/dL (9-16); Calcium 8.2 mg/dL (8.4-10.2); Carbon Dioxide 22 mmol/L (22-29); Chloride 102 mmol/L (96-108); Creatinine Clr Calc Pharmacy 183.3; Estimated Glomerular Filt Rate > 60; Glucose Random 96 mg/dL (60-115); Lactate Dehydrogenase 225 U/L (122-220); Magnesium 1.9 mg/dL (1.6-2.6); Potassium 3.7 mmol/L (3.3-5.1); Sodium 134 mmol/L (135-145); Total Protein 6.7 g/dL (6.5-8.0)
[2020-12-17 22:25] LABS: Lipase 35 U/L (8-78)
[2020-12-17 22:40] LABS: Procalcitonin 0.08 ng/mL
--- NOTE | 2020-12-17 22:41 | PC.NURSE ---
[facility] TRANSFER LINE CALLED AT THIS TIME. CALL TRANSFERRED TO DR. CAMPOS.
[2020-12-17 22:45] VITALS: BP 103/61; PULSE 134; RESP 22; TEMP 37.2; O2SAT 97
[2020-12-17 22:45] LABS: Ferritin 28 ng/mL (10-122)
[2020-12-17] MEDS: dexAMETHasone sod phosphate 4 MG/ML VIAL 6 MG IVPUSH (22:45)
--- NOTE | 2020-12-17 22:46 | PC.NURSE ---
reports feeling better. is aware of covid status and likelyhood of transfer to [facility]> pt has informed family. ST onmonitor. still slightly tachipnic. able to speak full sentences if not exerting herself.
--- NOTE | 2020-12-17 22:50 | PC.NURSE ---
states LMP was may 21. diff to tell because of depo shots. Due Date January 26.
--- NOTE | 2020-12-17 22:52 | PC.NURSE ---
[facility] TRANSFER LINE CALLS BACK AT THIS TIME. CALL ANSWERED BY DR. CAMPOS.
--- NOTE | 2020-12-17 22:58 | PC.NURSE ---
pt attempted to ambulate to BR but just standing increased work of breathing and Sao2 dropped to 90% on 4l NC.
[2020-12-17 23:42] VITALS: BP 106/53; PULSE 112; RESP 21; TEMP 37; O2SAT 98
== END 2020-12-18 00:54 | disposition short-term general hospital (02) ==
PROVIDERS: Emergency Provider Emergency Medicine
DX: O98.513 Other viral diseases complicating pregnancy, third trimester (principal); O99.513 Diseases of the respiratory system complicating pregnancy, third trimester; U07.1 COVID-19; J12.82 Pneumonia due to coronavirus disease 2019; Z3A.34 34 weeks gestation of pregnancy
CPT/HCPCS: 0241U; 36415; 71045; 80048; 80076; 82728; 83605; 83615; 83690; 83735; 83880; 84145; 84484; 85025; 85379; 85610; 85730; 87040; 93005; 94640; 96374; 99285; 99291; J1100

== ENCOUNTER → 2021-03-14 14:51 | Outpatient (BNVA) | payer MEDICAID, SELFPAY | PROVIDERS: Visit Provider Advanced Practice Midwife | DX: Z39.2 Encounter for routine postpartum follow-up (principal) | CPT/HCPCS: 99212 ==